=== PATIENT | male | born 1980 | race Two or more races ===

== ENCOUNTER 2016-11-21 09:58 | Emergency (ER) | payer MEDICAID, OTHER ==
[2016-11-21 10:41] VITALS: BP 158/107
[2016-11-21] MEDS ORDERED: Ketorolac INJ* 60 MG/2 ML VIAL IM ONE (10:45)
[2016-11-21] MEDS ORDERED: Ketorolac INJ* 60 MG/2 ML VIAL ONE (10:47)
--- NOTE | 2016-11-21 11:44 | UC ---
Shoulder Pain HPI - HPI Summary HPI Summary: The patient comes in today for: 1. Left shoulder pain: Onset: 3 hours ago. Palliative/provocative: Keeping the left arm in a sling helps. Quality: Burning Region: Left shoulder. Severity: 7/10 at rest. 10/10 with movement. Time: Constant. Associated symptoms: Event: The patient was going down steps at home when he slipped and his hand was wedged in the railing resulting in hyperextension posteriorly of the shoulder. He got up with the help of his feet and released his hand. His left shoulder felt "hot" and had excruciating pain. He held the left arm at the wrist by his right arm at the anterior right shoulder area. He took his kids to school and came here. He has not taken any medications for it. He has a history of lower back pain. He took Mobic 7.5 mg this morning about 3 hours prior. He took Flexeril, Mobic, tramadol this morning. He states that his left ring and little fingers feel numb. He denies any elbow pain. * - History of Current Complaint Chief Complaint: UCUpperExtremity Stated Complaint: LEFT SHOULDER INJURY Time Seen by Provider: 11/21/16 10:44 Hx Obtained From: Patient - Allergies/Home Medications Allergies/Adverse Reactions: Allergies Allergy/AdvReac Type Severity Reaction Status Date / Time No Known Allergies Allergy Verified 11/21/16 10:42 Home Medications: Home Medications Cyclobenzaprine TAB* [Flexeril TAB*] 10 mg PO TID 11/21/16 [History Confirmed ] Meloxicam 7.5 mg PO BID 11/21/16 [History Confirmed 11/21/16] traMADol TAB* [Ultram*] 50 mg PO TID 11/21/16 [History Confirmed 11/21/16] PMH/Surg Hx/FS Hx/Imm Hx Previously Healthy: No - Low back pain on Rx. Endocrine History Of: Denies: Diabetes, Thyroid Disease, Hyperthyroidism, Hypothyroidism, Dyslipidemia Cardiovascular History Of: Denies: Cardiac Disorders, Hypertension, Pacemaker/ICD, Myocardial Infarction , Congestive Heart Failure, Atrial Fibrillation, Deep Vein Thrombosis, Bleeding Disorders Respiratory History Of: Denies: COPD, Asthma, Bronchitis, Pneumonia, Pulmonary Embolism GI/ History Of: Denies: Gastroesophageal Reflux, Ulcer, Gastrointestinal Bleed, Gall Bladder Disease, Kidney Stones, Diverticulitis, Renal Disease, Urosepsis Neurological History Of: Denies: TIA, CVA, Dementia, Seizures, Migraine Psychological History Of: Denies: Anxiety, Depression, Bipolar Disorder, Schizophrenia, Post Traumatic Stress Disorder Cancer History Of: Denies: Lung Cancer, Colorectal Cancer, Breast Cancer, Prostate Cancer, Cervical Cancer Other History Of: Negative For: HIV, Hepatitis B, Hepatitis C, Anticoagulant Therapy - Surgical History Surgical History: Yes Surgery Procedure, Year, and Place: left shoulder arthroscopy - Family History Known Family History: Positive: Hypertension Negative: Cardiac Disease - Social History Occupation: Unemployed Alcohol Use: None Substance Use Type: Prescribed Smoking Status (MU): Never Smoked Tobacco Review of Systems Constitutional: Negative Skin: Negative Eyes: Negative ENT: Negative Respiratory: Negative Cardiovascular: Negative Gastrointestinal: Negative Genitourinary: Negative Musculoskeletal: Arthralgia, Myalgia All Other Systems Reviewed And Are Negative: Yes Physical Exam Triage Information Reviewed: Yes Appearance: Well-Appearing, No Pain Distress, Well-Nourished Vital Signs: Initial Vital Signs Temp 98.2 F 11/21/16 10:35 Pulse 99 11/21/16 10:35 Resp 14 11/21/16 10:35 BP 158/107 11/21/16 10:35 Pulse Ox 99 11/21/16 10:35 Vital Signs Reviewed: Yes Eyes: Positive: Conjunctiva Clear. Negative: Discharge ENT: Positive: Hearing grossly normal, Pharyngeal erythema, Nasal congestion, Nasal drainage, TM bulging, TM dull, TM red. Negative: Tonsillar swelling, Tonsillar exudate Dental: Negative: Gross Decay/Caries @, Dental Fracture @ Neck: Positive: Supple, Nontender, No Lymphadenopathy. Negative: Nuchal Rigidity Respiratory: Positive: Lungs clear, No respiratory distress, No accessory muscle use. Negative: Crackles, Wheezing Cardiovascular: Positive: RRR, No Murmur Abdomen Description: Positive: Nontender, No Organomegaly, Soft. Negative: Distended, Guarding Musculoskeletal: Positive: Other: - Left shoulder: No ecchymosis. No muscular atrophy or swelling. There is tenderness to palpation around the coracoid process, of the left pectoralis major muscle tendon, of the musculature around the lateral clavicle, around the AC joint, and along the trapezius muscle posterior. Frontal, and latera adduction is painful past 30 degrees from the horizontal. Neurological: Positive: Alert, Muscle Tone Normal Psychological: Positive: Age Appropriate Behavior, Consolable Skin: Negative: rashes, breakdown Diagnostics - Radiology No standard instances Xray Interpretation: No Acute Changes Radiology Interpretation Completed By: Radiologist Shoulder Course/Dx - Course Course Of Treatment: Patient was told that the x-rays was negative, and that I suspected he had soft tissue (ligament, muscular) injury. Treatment options were discussed. Assessment/Plan: Left shoulder soft tissue injury (Pectoralis major muscle tendon strain, rotator cuff injury). - Differential Dx/Diagnosis Provider Diagnoses: Left shoulder pain (pectoralis major muscle tendon strain, rotator cuff injury) Discharge - Discharge Plan Condition: Stable Disposition: HOME Patient Education Materials: Shoulder Sprain (ED) Referrals: Josue Riley MD [Medical Doctor] - 1 Week (Please call Dr. Riley's office for a follow-up appointment for re-evaluation of your left shoulder pain. If you get worse between now and then, please be seen sooner by the ER or us.)
--- NOTE | 2016-11-21 11:45 | RAD ---
Indication: Left shoulder pain. 3 views of left shoulder demonstrates no fracture. No other bone or joint abnormality is identified. IMPRESSION: No fracture of the left shoulder is noted.
== END 2016-11-21 12:21 | disposition home or self-care (01) ==
LOC: UCCORT 09:58 → MERGE 09:58 → UCCORT 12:21
DX: S46.812A Strain of other muscles, fascia and tendons at shoulder and upper arm level, left arm, initial encounter (principal); S46.092A Other injury of muscle(s) and tendon(s) of the rotator cuff of left shoulder, initial encounter; W10.8XXA Fall (on) (from) other stairs and steps, initial encounter; X50.9XXA Other and unspecified overexertion or strenuous movements or postures, initial encounter; R09.81 Nasal congestion
CPT/HCPCS: 96372; 99203; G0463; J1885

== ENCOUNTER 2017-05-25 10:50 | Day surgery (SDC) | payer OTHER ==
--- NOTE | 2017-05-22 13:50 | HP ---
AMENDED REPORT NOW INCLUDES COSIGNER DESIGNATION - ESIGNED BEFORE ADJUSTMENT PREOPERATIVE HISTORY AND PHYSICAL: DATE OF ADMISSION: 05/25/17 PROVIDER: Dr. Alessandra Garvey. * (DICTATED BY SHALINI BENNETT) CHIEF COMPLAINT: Left shoulder pain. HISTORY OF PRESENT ILLNESS: Davin is a 37-year-old male followed by Dr. Garvey for ongoing trouble with his left shoulder. He has been treated for impingement syndrome and biceps tendinitis. He has had one episode of instability on the left shoulder but has been doing well with regards to that. He states he has constant soreness, which has been 8/10. He has failed conservative treatment with physical therapy and cortisone injections. He feels he has already reached a plateau and would like to proceed with surgery. He has difficulty with any overhead motion and cannot lift anything substantial with the left arm. PAST MEDICAL HISTORY: Chronic back pain. PAST SURGICAL HISTORY: Left knee arthroscopy and left ankle reconstruction. He does report some nausea with anesthesia. CURRENT MEDICATIONS: 1. Tramadol HCl 50 mg 1 to 2 tabs p.o. q.6 hours as needed for pain. 2. Meloxicam 7.5 mg p.o. b.i.d. 3. Tylenol 650 mg q.6 hours p.r.n. pain. 4. Gabapentin 900 mg p.o. q. day. ALLERGIES: No known drug allergies. SOCIAL HISTORY: The patient lives with his and children. He is currently unemployed. He is a former smoker. He denies alcoholic beverages. He denies any illicit drug use. He exercises occasionally. REVIEW OF SYSTEMS: Constitutional: Negative for recent hospitalizations, fevers, chills, night sweats, or unexplained weight loss. HEENT: Negative for headaches, lightheadedness, balance problems, changes to his hearing or vision, sore throat, runny nose, or frequent nose bleeds. Cardiovascular: Negative for chest or arm pain with exertion, history of heart murmur, heart palpitations , or high blood pressure. Negative for embolism or DVT. Respiratory: Negative for chronic cough, shortness of breath with exertion, asthma, or COPD. Gastrointestinal: Negative for heartburn, nausea, vomiting, diarrhea, or constipation. Genitourinary: Negative for nighttime urination, frequency of urination, urinary tract infections, or kidney problems. Musculoskeletal: Positive for chronic back pain, negative for any recent fractures. Skin: Negative for rashes, lesions, lumps, or sores. Neurologic: Negative for seizure , stroke, epilepsy, depression, or anxiety. Endocrine: Negative for diabetes or thyroid problems. Hematology: Negative for easy bleeding, bruising, or anemia. PHYSICAL EXAMINATION GENERAL: He is well-developed, well-nourished, pleasant male in no acute distress at rest. He is alert and oriented x3 with appropriate mood and affect. VITAL SIGNS: The patient is 5 feet 2 inches, 146 pounds, blood pressure 109/79 , pulse 68, temperature 96.8, respirations 15. HEENT: Normocephalic, atraumatic. Hearing and vision are grossly intact. NECK: Trachea is midline. RESPIRATORY: Lungs clear to auscultation bilaterally. No wheezes, rales, or rhonchi. CARDIOVASCULAR: Regular rate and rhythm. No murmurs, rubs or gallops. Normal S1, S2. ABDOMEN: Soft, nondistended, nontender. Normal bowel sounds. EXTREMITIES: Exam of the left upper extremity, skin is intact without abrasions or open wounds. There is overall normal alignment of the shoulder with no gross deformities. There is no warmth or erythema. He is tender to palpation over the AC joint, proximal biceps tendon, and the subacromial space. He has forward flexion to 160 degrees, abduction to 160 degrees, external rotation to 65 degrees, internal rotation to the posterior iliac spine. He has 4/5 strength with resisted supraspinatus testing, belly press, and bear hug. He has 5/5 strength with infraspinatus testing. He has a positive Neer, Speed, Mcgowan-Patrice, and Lorain test. He has a 2+ radial pulse and his sensation to light touch is intact. DIAGNOSTIC STUDIES: Imaging: MRI of the left shoulder revealed supraspinatus tendinosis and fluid in the biceps, no evidence of full rotator cuff tear. IMPRESSION: Biceps tendinitis and left shoulder impingement. PLAN: The patient is to undergo left shoulder arthroscopic excision of the distal clavicle, decompression, debridement, and possible subpectoral biceps tenodesis by Dr. Garvey on 05/25/17. The risks, benefits, and postoperative course were discussed with the patient at length and he would like to proceed. Prescription for Percocet was sent to his pharmacy for postoperative pain. All of his questions were answered to his satisfaction. SHALINI BENNETT [id number]/[facility] #: [id number] THAD
[~2017-05-25 10:50] MED LIST: Buffered Lidocaine 0.9% SYRIN* 5 ML/SYR SYRINGE INTRADERM ONE; Dexamethasone IV* 4 MG/ML 1 ML (4 MG) IV SLOW PU ONE; Famotidine IV* 10 MG/ML 2 ML (20 mg) IV ONE
[2017-05-25] MEDS ORDERED: Famotidine IV* 10 MG/ML 2 ML (20 mg) ONE (10:52)
[2017-05-25] MEDS ORDERED: Dexamethasone IV* 4 MG/ML 1 ML (4 MG) ONE (10:52)
[2017-05-25] MEDS ORDERED: ROPIVACAINE 5 MG/ML 30 ML BTL (0.5%) ONE (11:27)
[2017-05-25] MEDS ORDERED: Midazolam* 1 MG/ML 2 ML VIAL (2 MG) ONE (11:29)
[2017-05-25] MEDS ORDERED: fentaNYL* 50 MCG/ML 2 ML VIAL (100 MCG VIAL) ONE (11:29)
[2017-05-25] MEDS ORDERED: Propofol* 500 MG/50 ML BTL ONE (11:35)
[2017-05-25] MEDS ORDERED: Bupivacaine 0.25% SDV* 30 ML ONE (12:17)
[2017-05-25] MEDS ORDERED: Bupivacaine 0.25% EPI 200,000* 30 ML SDV ONE (12:17)
[2017-05-25] MEDS ORDERED: Ondansetron INJ* 2 MG/ML VIAL ONE (14:24)
[2017-05-25] MEDS ORDERED: Propofol* 10 MG/ML 20 ML BTL IV PUSH ONE (14:27)
[2017-05-25] MEDS ORDERED: methylPREDNISolone ACETATE 80* 80 MG/ML 1 ML VIAL ONE (14:28)
[2017-05-25] MEDS ORDERED: fentaNYL* 50 MCG/ML 2 ML VIAL (100 MCG VIAL) IV PRN (14:38)
[2017-05-25] MEDS ORDERED: Scopolamine 1.5 mg* PATCH TRANSDERM PRN (14:38)
[2017-05-25] MEDS ORDERED: DiMENhydriNATE IV* 50 MG/ML VIAL IV PUSH PRN (14:38)
[2017-05-25 16:26] VITALS: BP 139/90
--- NOTE | 2017-05-26 14:52 | OP ---
CC: Katerine PHILLIPS PA * DATE OF OPERATION: 05/25/17 - [facility] DATE OF : 78 SURGEON: Alessandra Garvey MD DIEING OUT MACHINE OPERATOR: SHALINI Rowland. An recruitment and outreach assistant was needed for the entirety of the case to help with positioning, retraction, and was utilized throughout all portions of the case. ANESTHESIOLOGIST: Dr. Quinteros. ANESTHESIA: General interscalene block. PRE-OP DIAGNOSIS: Left shoulder bicipital tendonitis as well as impingement and acromioclavicular joint arthritis. POST-OP DIAGNOSIS: Left shoulder bicipital tendonitis as well as impingement and acromioclavicular joint arthritis. OPERATIVE PROCEDURE: 1. Left shoulder arthroscopy with glenohumeral debridement. 2. Subacromial decompression with acromioplasty. 3. Distal clavicle excision. 4. Subpectoral biceps tenodesis. 5. Subacromial injection with 80 mg of Depo-Medrol. ESTIMATED BLOOD LOSS: Minimal. COMPLICATIONS: None. IMPLANTS USED: One Mon[place] and Nephew 2.8 Q-Fix anchor. INDICATIONS: Davin Rice is a 37-year-old male who has had a several-month history of shoulder pain refractory to conservative management. He did have response to injections along the bicipital groove but he had persistent pain and left side impingement. After extensive discussion of the risks and benefits of operative versus nonoperative management, he elected to proceed with surgery. Risks include but are not limited to bleeding, infection, damage to nerves, vessels, surrounding structures, wound nonhealing, persistent pain, need for further surgery, scarring, stiffness, persistent pain, risk of arthritis, failure of the repair, risks of anesthesia and risks of DVT. He has elected to proceed. DESCRIPTION OF PROCEDURE: The patient was greeted in the preoperative area by the attending surgeon. Correct extremity was marked and consent was confirmed. The patient then underwent interscalene nerve block, which he tolerated without difficulty. After which the patient was then brought back to the operating suite and he was placed in supine position on the operating table. He then underwent general anesthesia endotracheal intubation. After which, the patient was then placed in the right lateral decubitus position with a small axillary roll. He was supported with a pegboard. All bony prominences were padded. His left arm was draped unsterile with 10 pounds of traction and the left shoulder was then prepped and draped in the usual sterile fashion beginning with chlorhexidine soap, scrub, and alcohol wipe and a final prep of ChloraPrep. After appropriate surgical pause indicating side, site, procedure, and administration of antibiotics, a standard posterior portal was made sharply with 11 blade. Scope was introduced through the joint and the joint was examined. There were grade 0 to 1 changes of the glenoid and humerus. The anterior, posterior, and superior labrum had unstable fraying. The superior was noted to be torn with biceps tendinosis as well as tendonitis. The undersurface of the rotator cuff was intact. Subscapularis had minimal fraying. The inferior recess was intact. The anterior portal was made in an outside in fashion. Shaver was used to debride back the anterior, posterior, superior labrums. The biceps was then tenotomized. Once all fluid and debris was removed from the glenohumeral joint. The scope was placed in the subacromial space. Abundant bursa was identified. The lateral portal was made in an outside fashion. Shaver was then used to debride this back very carefully. Hemostasis was obtained and maintained using electrocautery device. The undersurface of the acromion was then skeletonized using the electrocautery device. The CA ligament was peeled back. A small acromioplasty was done as there was a small downward sloping lateral curved acromion. All excess debris was removed and attention was directed to the AC joint. The eb was brought in through the anterior portal. Approximately 8 mm of distal clavicle was removed there carefully. There was also evidence of some calcification of the meniscus at the AC joint that was present that was then carefully removed using the shaver. Care was taken to not damage the CC ligament. All excess debris was removed from the joint. An 18-gauge needle was then placed under arthroscopic visualization for later Depo- Medrol injection. Next, attention was directed to the subpectoral biceps tenodesis. The bed was slightly air planed and the anterior aspect of the shoulder was prepped with ChloraPrep. A 15 blade was then used to make an anterior incision. Soft tissues were carefully dissected to expose the fascia. Once the fascia identified, remainder of dissection was done bluntly. Bicipital groove was palpated. A Kirby was used to superiorly elevate the pec tendon and expose the bicipital groove and the biecps was palpated. A right angle was then used to remove the biceps through the wound. There was abundant synovitis and erythema noted. Bicipital groove was prepared in the usual fashion with electrocautery and then a round ball rasp and osteotomes. After this, the [place] and Nephew Q-Fix anchor guide was then placed in the bicipital groove and drilled unicortically. Q-Fix anchor was then deployed with excellent purchase. The sutures were then shuttled through the biceps approximately 1 cm proximal to the musculotendinous junction. This was placed in Madhu-Chris type configuration. The excess stump was then sharply excised. The biceps was then shuttled back to the wound and tied down. Wounds were copiously irrigated with sterile saline. The portals were closed with 3-0 nylon. The anterior wound was closed with 2-0 Vicryl and 3-0 Monocryl. Sterile dressings were applied. The anterior wound was injected with 20 cc of 0.25% Marcaine, 80 mg of Depo- Medrol injection in the subacromial space. A Cryo/Cuff and UltraSling were then placed. He was awoken from anesthesia and transferred to the PACU in stable condition. POSTOPERATIVE PLAN: He will be nonweightbearing and then in sling for 4 weeks. He will be allowed elbow, wrist, and hand range of motion. He will start physical therapy in approximately 10 days. He will be discharged on pain medication as well as antibiotics. DVT prophylaxis considered but deferred due to no previous personal or family history. I will see the patient back in 10 to 14 days. [id number]/[facility] #: [id number] THAD
== END 2017-05-25 16:20 | disposition home or self-care (01) ==
LOC: OREAST 10:50
PROVIDERS: ATTEND Orthopaedic Surgery
DX: M75.42 Impingement syndrome of left shoulder (principal); M75.22 Bicipital tendinitis, left shoulder; M19.012 Primary osteoarthritis, left shoulder; J45.909 Unspecified asthma, uncomplicated; Z87.891 Personal history of nicotine dependence
CPT/HCPCS: C1776; J1040; J1100; J2250; J2405; J2704; J2795; J3010

== ENCOUNTER 2019-02-12 18:56 | Emergency (ER) | payer MEDICARE, OTHER ==
[2019-02-12 19:38] VITALS: BP 147/88
--- NOTE | 2019-02-12 20:50 | UC ---
Upper Extremity HPI - HPI Summary HPI Summary: 39 yo WM c/o left wrist and thumb pain after a metal bar hit his left wrist and thumb 1 week ago, ROM preserved - History of Current Complaint Chief Complaint: UCUpperExtremity Stated Complaint: LEFT WRIST/THUMB INJURY Time Seen by Provider: 02/12/19 19:40 Hx Obtained From: Patient Onset/Duration: Sudden Onset Severity Initially: Moderate Severity Currently: Moderate Pain Intensity: 7 - Allergies/Home Medications Allergies/Adverse Reactions: Allergies Allergy/AdvReac Type Severity Reaction Status Date / Time No Known Allergies Allergy Verified 02/12/19 19:31 PMH/Surg Hx/FS Hx/Imm Hx Other History Of: Negative For: HIV, Hepatitis B, Hepatitis C, Anticoagulant Therapy - Surgical History Surgical History: Yes Surgery Procedure, Year, and Place: 2013 left knee scoped, [place]. 2010- [address] spinal injections [facility]. 2014 LEFT ankle surgery [place]. 1995 LEFT SHOULDER SCOP [facility] - Family History Known Family History: Positive: Hypertension Negative: Cardiac Disease - Social History Alcohol Use: None Substance Use Type: None Smoking Status (MU): Former Smoker Type: Cigarettes Amount Used/How Often: 1PPWEEK 8 YRS QUIT 2009 Have You Smoked in the Last Year: No When Did the Patient Quit Smoking/Using Tobacco: 2008 - Immunization History Most Recent Influenza Vaccination: has not had Review of Systems All Other Systems Reviewed And Are Negative: Yes - Comments Additional Review of Systems Comments: Constitutional: Negative Eyes: Negative ENT: Negative Cardiovascular: Negative Respiratory: Negative Gastrointestinal: Negative Genitourinary: Negative Musculoskeletal: left wrist pain Skin: Negative Neurological: Negative Psychological: Normal Physical Exam - Summary Physical Exam Summary: Appearance: Positive: No Pain Distress Skin: Positive: Warm Head/Face: Positive: Normal Head/Face Inspection Eyes: Positive: Normal ENT: Positive: Normal ENT inspection Neck: Positive: Supple Respiratory/Lung Sounds: Positive: Clear to Auscultation. Negative: Rales, Rhonchi, Wheezes Cardiovascular: Positive: Normal, RRR, S1, S2 Abdomen : soft, NT/ND Musculoskeletal: Positive: moderate TTP over left prox phalanx, left distal forearm, NVI Neurological: Positive: CN Intact II-XII Vital Signs: Initial Vital Signs Temp 36.3 C 02/12/19 19:33 Pulse 62 02/12/19 19:33 Resp 15 02/12/19 19:33 BP 147/88 04/27/19 19:33 Pulse Ox 100 02/12/19 19:33 Upper Extremity Course/Dx - Course Course Of Treatment: WET read of XR of left wrist, forearm and thumb neg for fx, wrist splint, RICE, NSAIDS PRN - Differential Dx/Diagnosis Provider Diagnosis: Left wrist injury, Pain of left thumb, Left forearm pain Discharge - Sign-Out/Discharge Documenting (check all that apply): Patient Departure All imaging exams completed and their final reports reviewed: Yes - Discharge Plan Condition: Stable Disposition: HOME Prescriptions: Naproxen [Naproxen 500 mg tab] 500 mg PO BID 15 Days #30 tablet Patient Education Materials: Wrist Sprain (ED) Referrals: Jamie Alejandra PA [Primary Care Provider] - Additional Instructions: Rest, ICE, Compression with wrist splint and Elevate, Anti-inflammatories as directed. Call urgent care on Thursday for your official X-ray results - Billing Disposition and Condition Condition: STABLE Disposition: Home
== END 2019-02-12 20:55 | disposition home or self-care (01) ==
LOC: UCCORT 18:56
DX: S69.92XA Unspecified injury of left wrist, hand and finger(s), initial encounter (principal); M79.632 Pain in left forearm; M79.645 Pain in left finger(s); X58.XXXA Exposure to other specified factors, initial encounter; Y92.9 Unspecified place or not applicable; Z87.891 Personal history of nicotine dependence
CPT/HCPCS: 99213; G0463